=== PATIENT | male | born 1985 | race Caucasian/White ===

== ENCOUNTER 2018-01-05 15:05 | Emergency (ER) | payer OTHER ==
[2018-01-05] MEDS ORDERED: IBUPROFEN 400 MG TAB ONE (16:06)
[2018-01-05] MEDS ORDERED: CYCLOBENZAPRINE 10 MG TAB ONE (16:06)
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
[2018-01-05] MEDS ORDERED: HYDROCODONE/APAP 10/325 TAB ONE (17:30)
== END 2018-01-05 17:43 | disposition home or self-care (01) ==
LOC: ER 15:05
DX: M62.838 Other muscle spasm (principal)
CPT/HCPCS: 99283

== ENCOUNTER 2018-05-02 15:40 | Emergency (ER) | payer OTHER ==
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
[2018-05-02] MEDS ORDERED: KETAMINE HCL 500 MG/5 ML VIAL ONE (16:33)
[2018-05-02 16:40] LABS: Absolute Lymphocytes (CBC) 1.4 K/uL (0.7-4.9); Absolute Monocytes 1.6 K/uL (0.1-1.3); Absolute Neutrophil 20.3 K/uL (1.8-8.0); Basophils % 0.2 % (0-1.3); Eosinophils % 0.6 % (0-4.4); Hematocrit 44.6 % (39.6-49.0); MCH 30.9 pg (27.0-35.0); MCV 91.3 fL (80-100); MPV 8.5 fL (7.6-11.3); Monocytes % 6.9 % (3.3-12.3); Potassium 4.2 mmol/L (3.5-5.1); RBC Red Blood Cell Count 4.88 M/uL (4.33-5.43)
[2018-05-02] MEDS ORDERED: LORazepam 2 MG/ML VIAL ONE (16:44)
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
[2018-05-02] MEDS ORDERED: MORPHINE 4 MG/ML SYR ONE (18:19)
[2018-05-02 19:33] LABS: Blood Morphology Comment NOT SEEN (NOT SEEN); Platelet Estimate ADEQ; Urine White Blood Cell Casts OK
== END 2018-05-02 19:02 | disposition short-term general hospital (02) ==
LOC: ER 15:40
PROC: 0RSLXZZ Reposition Right Elbow Joint, External Approach (ICD-10-PCS; principal; 2018-05-02)
DX: S12.500A Unspecified displaced fracture of sixth cervical vertebra, initial encounter for closed fracture (principal); S12.600A Unspecified displaced fracture of seventh cervical vertebra, initial encounter for closed fracture; S22.029A Unspecified fracture of second thoracic vertebra, initial encounter for closed fracture; S22.039A Unspecified fracture of third thoracic vertebra, initial encounter for closed fracture; V79.50XA Passenger on bus injured in collision with unspecified motor vehicles in traffic accident, initial encounter
CPT/HCPCS: 36415; 70450; 70498; 71260; 72125; 74177; 80048; 85025; 86850; 86900; 86901; Q9967